=== PATIENT | male | born 1960 | race Caucasian/White ===

== ENCOUNTER 2021-10-19 08:03 | Outpatient (CLI) | payer OTHER | END 2021-10-19 08:14 | disposition home or self-care (01) | LOC: SONOGRAMA 08:03 → EDBD 08:03 → SONOGRAMA 08:14 | DX: D17.0 Benign lipomatous neoplasm of skin and subcutaneous tissue of head, face and neck (principal); D48.5 Neoplasm of uncertain behavior of skin ==